=== PATIENT | male | born 1965 | race Caucasian/White ===

== ENCOUNTER 2017-01-19 12:27 | Inpatient (IN) | payer BC ==
--- NOTE | ~2017-01-19 | CR72 ---
[facility] A Service of [facility] RADIOLOGY TEXT RESULTS PATIENT: RICARDA OTERO LOCATION: [facility] 311-01 : 63 UNIT #: [id number] AGE: [address]: Yolis Leal MD SEX: M ORDER DR: [id number] [facility] [address] [facility]. [place], [place] [address] [id number] MR#: [id number] Acc #: [id number] NAME: RICARDA OTERO : 1965 SEX: M STUDY DATE/TIME: 01/19/2017 12:55 UNIT: [facility] ROOM: STUDY DESCRIPTION: CR Chest Single View Portable Attending Physician: Derik Sarah D.O. Ordering Physician: Derik Sarah D.O. Primary Care Physician: No Primary Care Physician MEDICAL IMAGING REPORT This report is preliminary unless electronic signature is present EXAM AP portable chest date 01/19/2017 at 12:55 HISTORY Cough. Blood in sputum. Shortness of breath. Symptoms have been present for 4 days. Smoking history. COMPARISON None. FINDINGS Abnormal interstitial opacities are seen diffusely throughout both lungs, left greater than right, with relative sparing of the apices. No pleural effusion or pneumothorax is identified. IMPRESSION Abnormal interstitial type infiltrates throughout both lungs, greatest in the left lower lobe, with relative sparing of the apices. Findings are nonspecific may represent changes of pneumonia in the appropriate clinical context. Continued radiographic followup to document resolution recommended. Dictated by... Fouzia Schrader M.D. THIS IS AN ELECTRONICALLY VERIFIED REPORT Fouzia Schrader M.D. at 01/20/2017 7:04 AM CRIS/nicholas TD: 01/19/2017 14:29 JOB #: [id number] MEDICAL IMAGING REPORT [facility] A Service of [facility] RADIOLOGY TEXT RESULTS PATIENT: RICARDA OTERO LOCATION: [facility] 311-01 : 63 UNIT #: [id number] AGE: [address]: Yolis Leal MD SEX: M ORDER DR: Page 1 of 1 COPY
--- NOTE | ~2017-01-19 | DS ---
Unit #: [id number] #: [id number] Patient: RICARDA OTERO [id number] [address] [place], [place] [address] [id number] I MR#: [id number] NAME: RICARDA OTERO. ROOM: 311 Age: 51 Sex: M Admission Date: 01/19/2017 : 1965 Discharge Date: 01/21/2017 Attending Physician: Ronnie De La Fuente M.D. Primary Care Physician: Kelsey Primary Care Physician DISCHARGE SUMMARY CONSULTANTS Dr. Ferrell. PROCEDURES PERFORMED Bronchoscopy. ADMITTING DIAGNOSES 1. Hemoptysis. 2. Community acquired pneumonia. 3. Hypoxia. DISCHARGE DIAGNOSES 1. Hemoptysis. 2. Community acquired pneumonia. 3. Hypoxia. 4. Hypertension. 5. History of smoking. HISTORY OF PRESENT ILLNESS The patient is a 51-year-old man with a past medical history of hypertension. He presented from the [facility] because of cough and shortness of breath. He was also complaining of having cough with production of bloody sputum. HOSPITAL COURSE The patient was started on steroids and antimicrobials. He got a chest x-ray which showed multifocal pneumonia. His initial white blood cell counts were high, up to 22,000. He also had a CT of the chest done. CT angiogram of the chest shows abnormal soft tissue thickening at the left hilum encasing and narrowing the left lower lobe bronchus, extending along the left lateral margin of the lower thoracic trachea near the jina, and abutting the left mainstem bronchus and left upper lobe bronchus. The findings are highly suspicious for primary lung malignancy. There is abnormal soft tissue thickening. Enlarged right hilar lymph node. Dense interstitial and alveolar disease in left lower lobe likely representing postobstructive pneumonia. Severe emphysema. 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 For further evaluation of the lung mass which is concerning for malignancy, Dr. Ferrell did a bronchoscopy. Pathology findings are pending at this point. He is still requiring 4 liters of oxygen. He is doing clinically better and he wants to go home. I discussed with Unit #: [id number] #: [id number] Patient: RICARDA OTERO Mariaelena and he mentioned it is okay to discharge him home. He needs to follow with Dr. Ferrell in his office in a week to review the biopsy findings and also plan further. I counseled him strongly to quit smoking. Will also arrange for home oxygen. I will also try to set up an appointment for him to follow with Mariaelena. PHYSICAL EXAMINATION VITALS: On the day of discharge, temperature 98.9, pulse rate 100, respiratory rate 20, blood pressure 135/97. GENERAL: The patient is alert and oriented times three, lying in the bed, in no acute distress. HEENT: Normocephalic, atraumatic. No icterus. Pupils equally round and reactive to light and accommodation. Extraocular muscles intact. NECK: Supple. No jugular venous distension. HEART: S1 and S2. Regular rate and rhythm. CHEST: Bilateral equal air entry. Bilateral rhonchi. ABDOMEN: Soft and nontender. EXTREMITIES: No edema. Normal pulses. DISCHARGE MEDICATIONS 1. Levaquin 750 mg p.o. daily for 5 more days. 2. Medrol Dosepak. 3. Tylenol p.r.n. 4. Metoprolol 25 mg p.o. b.i.d. 5. Humibid LA 600 mg b.i.d. 6. Protonix 40 mg daily. 7. Ventolin inhaler 1 puff q.4-6 h. p.r.n. shortness of breath. All discharge instructions were explained to the patient in detail. Total time in his care was 35 minutes. Dictated by... Brendon Santiago TD: 01/21/2017 15:35 JOB #: [id number] DISCHARGE SUMMARY Page 1 of 1 X X DISCHARGE SUMMARY
--- NOTE | ~2017-01-19 | CR72 ---
[facility] A Service of [facility] RADIOLOGY TEXT RESULTS PATIENT: RICARDA OTERO LOCATION: [facility] 311- : 63 UNIT #: [id number] AGE: [address]: Ronnie De La Fuente MD SEX: M ORDER DR: [id number] [facility] [address] [place], [place] [address] [id number] I MR#: [id number] Acc #: [id number] NAME: RICARDA OTERO : 1965 SEX: M STUDY DATE/TIME: 01/20/2017 16:02 UNIT: [address] ROOM: [facility] STUDY DESCRIPTION: CR Chest Single View Portable Attending Physician: Ronnie De La Fuente M.D. Ordering Physician: Rajiv Ferrell M.D. Primary Care Physician: Primary Care Physician No MEDICAL IMAGING REPORT This report is preliminary unless electronic signature is present EXAM Portable chest INDICATIONS Hemoptysis. The patient is status post bronchoscopic biopsy yesterday. PROCEDURE Frontal view of the chest COMPARISON 01/19/2017 at 1259 hours FINDINGS Redemonstration of increased interstitial markings, greatest in the left mid and lower lung zone. This is unchanged and there is no new dense consolidation. Lucency in the right apex in keeping with bolus change as shown on the recent. No appreciable pleural fluid. IMPRESSION Stable chest. Dictated by... Jose Manuel Templeton M.D. THIS IS AN ELECTRONICALLY VERIFIED REPORT Jose Manuel Templeton M.D. at 01/24/2017 9:54 AM EED/to TD: 01/20/2017 18:56 JOB #: [id number] MEDICAL IMAGING REPORT Page 1 of 1 COPY
--- NOTE | ~2017-01-19 | OR ---
Unit #: [id number] #: [id number] Patient: RICARDA OTERO [id number] [address] [place], [place] [address] [id number] I MR#: [id number] NAME: RICARDA OTERO ROOM: 311 Date of Procedure: 01/20/2017 Admission Date: 01/19/2017 Surgeon: Rajiv Ferrell M.D. : 1965 Attending Physician: Ronnie De La Fuente M.D. OPERATIVE REPORT INDICATIONS FOR PROCEDURE Right lower lobe pneumonia. ANESTHESIA Per anesthesiology. PROCEDURES PERFORMED Bronchoscopy with endobronchial biopsy, right lower lobe with transbronchial fine needle aspiration and bronchoalveolar lavage. DESCRIPTION OF PROCEDURE After obtaining informed consent, Anesthesiology gave propofol and Versed to the patient. The bronchoscope was used to do a BAL to the left lower lobe superior segment. Transbronchial FNA x4. This was sent off for cytology. The patient had a little bit of oozing; however, he tolerated the procedure very well. There were no acute complications and no limitations. Cultures will be sent off. Thank you very much. Please page me at [phone] if you have any questions. Dictated by... Brendon August/syed TD: 01/21/2017 06:21 JOB #: [id number] OPERATIVE REPORT Page 1 of 1 X Eleno Ferrell MD X PROCEDURE OPERATIVE NOTE
--- NOTE | ~2017-01-19 | CT16 ---
[facility] A Service of [facility] & [facility] RADIOLOGY TEXT RESULTS PATIENT: RICARDA OTERO LOCATION: [facility] 311-01 : 63 UNIT #: [id number] AGE: [address]: Yolis Leal MD SEX: M ORDER DR: [id number] [facility] [address] [facility]. [place], [place] [address] [id number] I MR#: [id number] Acc #: [id number] NAME: RICARDA OTERO. : 1965 SEX: M STUDY DATE/TIME: 01/19/2017 15:08 UNIT: [facility] ROOM: 30836 STUDY DESCRIPTION: CT Angio Chest for PE Attending Physician: Yolis Leal M.D. Ordering Physician: Yolis Leal M.D. Primary Care Physician: No Primary Care Physician MEDICAL IMAGING REPORT This report is preliminary unless electronic signature is present EXAM CTA chest with contrast, pulmonary embolism protocol, 01/19/2017. HISTORY 51-year-old male with acute respiratory failure, pneumonia, hemoptysis. Hypertension. Patient states cough for 2 days. Wheezing, fever, and shortness of breath. Blood in sputum. Current smoker. COMPARISON AP portable chest, 01/19/2017. PROCEDURE 2 mm axial images through the chest after IV contrast administration. 3-D coronal MIP reformatted images were also obtained. FINDINGS Left infrahilar soft tissue mass is seen, consistent with the appearance of malignancy. It measures about 1.8 cm x 5.3 cm anterior to the left lower lobe bronchus. It encases the left lower lobe bronchus and narrows it. It abuts the left upper lobe bronchus, but does not appear to encase it. There is abnormal soft tissue thickening in the AP window measuring 3.6 x 1.7 cm, where multiple clustered arterial vascular collaterals are seen. Prominence of presumed dilated bronchial arteries are seen arising from the anterior margin of the descending thoracic aorta at the T5 and T6 levels. There is some abnormal soft tissue thickening extending to the left lateral margin of the jina, as well. Constellation of findings is highly suspicious for malignancy. There is abnormal concentric thickening of the mid thoracic esophagus. No discrete esophageal lesion is identified. No supraclavicular or axillary adenopathy is seen. There is a mildly STS. [facility] A Service of [facility] RADIOLOGY TEXT RESULTS PATIENT: RICARDA OTERO LOCATION: [facility] 311-01 : 63 UNIT #: [id number] AGE: [address]: Yolis Leal MD SEX: M ORDER DR: prominent right suprahilar lymph node measuring 1.5 x 1.9 cm. Severe emphysematous changes are present. Dense interstitial and alveolar disease changes are seen throughout the left lower lobe, worrisome for pneumonia superimposed upon emphysema. No pleural effusion. No pneumothorax. 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 There is a chronic-appearing dissection with eccentric mural thrombus and probable moderate flow-limiting stenosis in the proximal SMA. The aneurysmal SMA segment measures at least 1.6 cm transversely, extending at least 2.8 cm in length. The imaged portions of the upper abdominal organs have a normal appearance. Adrenal glands unremarkable. No acute osseous abnormalities are identified. No evidence of pulmonary embolism. No thoracic aortic aneurysm or dissection. IMPRESSION 1. Abnormal soft tissue thickening in the left hilum encasing and narrowing the left lower lobe bronchus, extending along the left lateral margin of the lower thoracic trachea near the jina, and abutting the left mainstem bronchus and left upper lobe bronchus. The findings are highly suspicious for primary lung malignancy. 2. The vascularity is seen within the AP window, where there is abnormal soft tissue thickening. The neovascularity may represent dilated bronchial arteries related to emphysema or neovascularity related to suspected malignancy. Note of this should be made if transthoracic biopsy is contemplated. 3. Enlarged right hilar lymph node. Contralateral adenopathy cannot be excluded. 4. Dense interstitial and alveolar disease in left lower lobe likely representing postobstructive pneumonia. 5. Severe emphysema. 6. 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 Dictated by... Fouzia Schrader M.D. THIS IS AN ELECTRONICALLY VERIFIED REPORT [facility] A Service of [facility] & [facility] RADIOLOGY TEXT RESULTS PATIENT: RICARDA OTERO LOCATION: [facility] 311-01 : [birth year] UNIT #: [id number] AGE: [address]: Yolis Leal MD SEX: M ORDER DR: Fouzia Schrader M.D. at 01/20/2017 7:04 AM CRIS/lj TD: 01/19/2017 16:54 JOB #: [id number] MEDICAL IMAGING REPORT Page 1 of 1 COPY
--- NOTE | ~2017-01-19 | EKG ---
PATIENT: RICARDA OTERO UNIT #: [id number] Ventricular Rate: 112 BPM Atrial Rate: 112 BPM P-R Interval: 140 ms QRS Duration: 90 ms Q-T Interval: 316 ms QTC Calculation(Bezet): 431 ms P Crowley: 44 degrees Calculated R Crowley: -48 degrees Calculated T Crowley: 29 degrees Diagnosis Line: Sinus tachycardia Diagnosis Line: Left anterior fascicular block Diagnosis Line: Abnormal ECG Diagnosis Line: No previous ECGs available Diagnosis Line: Confirmed by LILY REYNOLDS MD ([id number]) on 01/20/2017 Diagnosis Line: 7:57:24 PM INTERPRETING MD: RODOLFO VIRAMONTES
--- NOTE | ~2017-01-19 | CO ---
Unit #: [id number] #: [id number] Patient: RICARDA OTERO [id number] [facility] [address]. [place], [place] [address] [id number] I MR#: [id number] NAME: RICARDA OTERO ROOM: 311 Age: 51 Sex: M Admission Date: 01/19/2017 : 1965 Attending Physician: Ronnie De La Fuente M.D. Consultation Date: 01/19/2017 CONSULTATION REPORT HISTORY OF PRESENT ILLNESS This is a 51-year-old gentleman, who does not go to the doctor very often, with a past medical history of hypertension, presented for evaluation of hemoptysis. The patient states he has had 2 to 3 day worsening shortness of breath, productive cough, fever, chills, bloody sputum. The patient is having chest wall pain with deep breathing. The patient has been having no vomiting or diarrhea. He was seen in [facility]. He was found to have saturations 89% and sent to the emergency department for further evaluation. In the emergency department, pulse was 117 and blood pressure was 150/118, O2 saturations 92% on 3 L. The patient is not on oxygen at home. The patient's saturation dropped to 88 on room air. The patient's chest x-ray shows multifocal pneumonia. The patient's white cell count was 22.6. The patient had a viral swab and rapid flu swab which were negative. The patient is being admitted to [facility] and we have been asked to see for possible bronchoscopy because the CT scan shows significant lymphadenopathy in the left lower lobe and there was also significant plugging of the left lower lobe, so therefore, there was a large pneumonic infiltrate in the left lower lobe. PAST MEDICAL HISTORY Significant for hypertension, however, the patient is not taking his medications because he stated that it "made him feel weird." PAST SURGICAL HISTORY He has no past surgical history. ALLERGIES No known medical allergies. MEDICATIONS No home medications. SOCIAL HISTORY The patient lives at home with his . Smokes about a pack and half cigarettes daily. Denies alcohol or polysubstance use. 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 FAMILY HISTORY Positive for intracranial aneurysm and congestive heart failure. REVIEW OF SYSTEMS As per the history of present illness, otherwise negative. PHYSICAL EXAMINATION Unit #: [id number] #: [id number] Patient: RICARDA OTERO VITAL SIGNS: T-current 98.1, pulse 117, respiratory rate 20, blood pressure 150/118, oxygen saturations 92% on 3 L and it dropped down to 88% on room air in the ED. HEENT: Extraocular movements are intact. CHEST: Clear to auscultation bilaterally. CARDIOVASCULAR: Regular rate. No gallop. ABDOMEN: Soft, nontender, and nondistended. EXTREMITIES: Shows trace edema. ASSESSMENT AND PLAN Lymphadenopathy and possible postobstructive pneumonia in left lower lobe. We are going to do a bronchoscopy and a bronchial wash to do biopsy FNA. Hopefully, we will find an endobronchial lesion that will help to explain the hemoptysis. Thank you very much for this consult and allowing us to participate in the care of this patient. Please page me at [phone] if you have any questions. Dictated by... Brendon August/syed TD: 01/21/2017 08:27 JOB #: [id number] CONSULTATION REPORT Page 1 of 1 X Eleno Ferrell MD X CONSULTATION REPORT
--- NOTE | ~2017-01-19 | HP ---
Unit #: [id number] #: [id number] Patient: RICARDA OTERO [id number] [facility]. [place], [place] [address] [id number] I MR#: [id number] NAME: RICARDA OTERO. ROOM: 44850 Age: 51 Sex: M Admission Date: 01/19/2017 : 1965 Attending Physician: Yolis Leal M.D. Primary Care Physician: Primary Care Physician No HISTORY AND PHYSICAL CHIEF COMPLAINT Cough, blood in sputum, sent from [facility]. HISTORY OF PRESENT ILLNESS The patient is a 51-year-old male with past medical history of hypertension who presented to the emergency department for evaluation of the above. The patient states that he has had a two to three day history of increasing shortness of breath and productive cough. The cough has been productive of bloody sputum. He states that he has had chest wall pain in association with deep breathing and cough. He has had chills and undocumented fever. He also reports decreased appetite but no vomiting or diarrhea. He was seen at [facility] and was noted to have oxygen saturation of 89%. He was sent to the emergency department for further evaluation. In the emergency department, initial pulse and blood pressure were 117 and 150/118 respectively. Oxygen saturation 92% on 3 liters. The patient's oxygen saturation dropped to 88% on room air during the course of his evaluation. A chest x-ray shows multifocal pneumonia. White blood cell count is 22.6. Rapid flu screen is negative. He is being admitted to [facility] for evaluation and further treatment. He received a 1 liter normal saline bolus as well as Rocephin and azithromycin in the emergency department. PAST MEDICAL HISTORY Hypertension. The patient was previously on antihypertensive medication but he states that it made him feel weird and so he stopped taking the medication. PAST SURGICAL HISTORY None. ALLERGIES No known allergies. HOME MEDICATIONS None. SOCIAL HISTORY The patient lives with his . He smokes a pack and a half of cigarettes daily. He denies alcohol or illicit drug use. 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 Unit #: [id number] #: [id number] Patient: RICARDA OTERO FAMILY HISTORY Notable for his mother having an intracranial aneurysm. His father had congestive heart failure. REVIEW OF SYSTEMS A complete review of systems is negative except as indicated in the HPI. The patient states that he has never had a stress test, never had a cardiac catheterization, never been told he has COPD. He denies any change in his weight. PHYSICAL EXAMINATION VITAL SIGNS: Temperature 98.1, pulse 117, respirations 20, blood pressure 150/118, oxygen saturation is 92% on 3 liters. Oxygen saturation dropped to 88% on room air in the emergency department. GENERAL: The patient is a male who is awake and alert in no acute distress. HEENT: Head is atraumatic. Mild exophthalmos noted. Mucous membranes are dry. NECK: Supple. Trachea is midline. LUNGS: Demonstrate scattered rhonchi and a few expiratory breathing. HEART: Tachycardic in the one-teens. ABDOMEN: Soft, nontender. Bowel sounds present in all four quadrants. EXTREMITIES: Nontender with no pedal edema. NEUROLOGIC: Patient is awake and alert. He follows commands. PSYCHIATRIC: Mood and affect are normal. Patient is cooperative. SKIN OF EXAMINED AREAS: Warm and dry. ASSESSMENT The patient is a 51-year-old male with: 1. Acute respiratory failure, hypoxic. 2. Pneumonia, community acquired. The patient received Rocephin and azithromycin in the emergency department. 3. Hemoptysis. 4. Sepsis. 5. Likely chronic obstructive pulmonary disease. 6. Uncontrolled hypertension. The patient's blood pressure is 150/118 in the emergency department. He was previously on some type of antihypertensive medication but is no longer compliant. 7. Tobacco abuse. PLAN 1. Admit to intermediate level. 2. Healthy-heart diet. 3. Normal saline at 125 mL per hour. 4. Supplemental oxygen 2-4 liters to maintain saturations greater than 92%. 5. DuoNeb q.4 h. while awake and q.2 h. p.r.n. 6. Solu-Medrol 80 mg IV q.12 h. with first dose now. 7. Mucinex 600 mg p.o. b.i.d. 8. Blood cultures x2. 9. Sputum culture and sensitivity. 10. CT of the chest PE protocol for further evaluation of hemoptysis and acute respiratory failure. 11. Procalcitonin level. 12. Consult Dr. Resendez regarding hemoptysis. 13. P.r.n. hydralazine. 14. Serial cardiac enzymes. Unit #: [id number] #: [id number] Patient: RICARDA OTERO 15. Sepsis protocol with STAT lactic acid. 16. Check urinalysis and urine tox screen. 17. Check TSH. 18. P.r.n. Tylenol. 19. Protonix for GI prophylaxis since the patient will be on Solu-Medrol. 20. Repeat labs in the morning. 21. Additional workup and consultants based on above. 22. Regarding CODE STATUS: Patient is a FULL CODE. Dictated by Brendon Jules/chloe TD: 01/19/2017 16:23 JOB #: [id number] HISTORY AND PHYSICAL Page 1 of 1 X Yolis Leal MD X HISTORY AND PHYSICAL
[2017-01-19 13:11] LABS: BASOPHIL% 0.1 % (0-2.5); EOSINOPHIL% 0.1 % (0.0-7.0); HEMATOCRIT 47.1 % (38.0-50.0); HEMOGLOBIN 15.9 gm/dL (13.0-16.0); LYMPHOCYTE# 0.7 X10e3 (1.0-3.5); MEAN CELL VOLUME 90.7 FL (83-96); MEAN CORPUSCULAR HEMOGLOBIN 30.7 PG (28-34); MEAN CORPUSCULAR HGB CONC 33.8 g/dL (30-36); MEAN PLATELET VOLUME 7.1 FL (6.5-11.5); MONOCYTE# 0.7 X10e3 (0-1.0); MONOCYTE% 2.9 % (3.0-12.0); NEUTROPHIL# 21.2 X10e3 (1.5-7.1); NEUTROPHIL% 93.9 % (40-75); PLATELET COUNT 290 X10e3 (140-420); RED BLOOD COUNT 5.19 X10e (3.90-5.60); WHITE BLOOD COUNT 22.6 X10e3 (4.0-10.5)
[2017-01-19 13:13] LABS: DIFF IND YES
[2017-01-19 13:14] LABS: POC - CKMB 1.1 ng/mL (0.0-7.9); POC - TROPONIN <0.05 ng/mL (<=0.05)
[2017-01-19 13:34] LABS: ALBUMIN SERUM 3.5 g/dL (3.5-5.0); BILIRUBIN, DIRECT 0.3 mg/dL (0.0-0.2); BILIRUBIN,TOTAL 1.3 mg/dL (0.2-2.0); CALCIUM SERUM 8.5 mg/dL (8.4-10.2); CREATININE SERUM 0.8 mg/dL (0.6-1.4); GLOM FILT RATE Estimated 102.7 mL/min (>60); POTASSIUM 3.5 mmol/L (3.5-5.1); PROTEIN TOTAL SERUM 7.3 g/dL (6.0-8.3)
[2017-01-19 13:39] LABS: PLATELET ESTIMATE NORMAL (NORMAL)
[2017-01-19 13:50] LABS: INFLUENZA A NEG (NEG); INFLUENZA B NEG (NEG)
[2017-01-19 14:56] LABS: POC - CKMB <1.0 ng/mL (0.0-7.9); POC - TROPONIN <0.05 ng/mL (<=0.05)
[2017-01-19 20:45] LABS: %MB 1.5 % (0.0-4.0); MB 1.1 ng/ml
[2017-01-19 20:55] LABS: URINE APPEARANCE CLEAR; URINE BILIRUBIN NEG (NEG); URINE BLOOD NEG (NEG); URINE COLOR YELLOW; URINE GLUCOSE 100 MG/DL (NEG); URINE KETONE 2+ (NEG); URINE LEUKOCYTE ESTERASE NEG (NEG); URINE NITRATE NEG (NEG); URINE PH 6.5 (5-8); URINE PROTEIN NEG (NEG); URINE SPECIFIC GRAVITY 1.017 (1.003-1.035)
[2017-01-19 21:02] LABS: CULTURE INDICATED? NO
[2017-01-19 21:04] LABS: AMPHETAMINE NEG (NEG); BARBITURATES NEG (NEG); BENZODIAZEPINES NEG (NEG); COCAINE NEG (NEG); MARIJUANA NEG (NEG); OPIATES NEG (NEG); TRICYCLIC ANTIDEPRESSANTS NEG (NEG); U METHADONE NEG (NEG)
[2017-01-20 01:39] LABS: HEMATOCRIT 45.1 % (38.0-50.0); HEMOGLOBIN 15.2 gm/dL (13.0-16.0); MEAN CELL VOLUME 90.6 FL (83-96); MEAN CORPUSCULAR HEMOGLOBIN 30.6 PG (28-34); MEAN CORPUSCULAR HGB CONC 33.7 g/dL (30-36); MEAN PLATELET VOLUME 7.3 FL (6.5-11.5); RED BLOOD COUNT 4.97 X10e (3.90-5.60); RED CELL DISTRIBUTION WIDTH 13.8 % (11.0-15.5); WHITE BLOOD COUNT 17.7 X10e3 (4.0-10.5)
[2017-01-20 02:49] LABS: BILIRUBIN,TOTAL 0.7 mg/dL (0.2-2.0); BUN/CREATININE RATIO 15.55; CREATININE SERUM 0.9 mg/dL (0.6-1.4); GLOM FILT RATE Estimated 97.9 mL/min (>60); POTASSIUM 3.4 mmol/L (3.5-5.1); PROTEIN TOTAL SERUM 6.7 g/dL (6.0-8.3)
[2017-01-20 02:50] LABS: %MB 13.1 % (0.0-4.0); MB 8.8 ng/ml
[2017-01-20 19:31] LABS: BF TOTAL NUCLEATED CELL COUNT 765 CMM (0-100); BODY FLUID APPEARANCE BLOODY; BODY FLUID RBC 178366 CMM; BODY FLUID SOURCE BRONCHIAL LAVAGE
[2017-01-21 06:32] LABS: HEMATOCRIT 40.2 % (38.0-50.0); MEAN CELL VOLUME 91.7 FL (83-96); MEAN CORPUSCULAR HEMOGLOBIN 29.9 PG (28-34); MEAN CORPUSCULAR HGB CONC 32.6 g/dL (30-36); MEAN PLATELET VOLUME 7.3 FL (6.5-11.5); RED BLOOD COUNT 4.38 X10e (3.90-5.60); RED CELL DISTRIBUTION WIDTH 14.2 % (11.0-15.5); WHITE BLOOD COUNT 17.6 X10e3 (4.0-10.5)
[2017-01-21 06:33] LABS: HEMOGLOBIN 13.1 gm/dL (13.0-16.0)
[2017-01-21 07:07] LABS: BUN/CREATININE RATIO 38.33; CREATININE SERUM 0.6 mg/dL (0.6-1.4); GLOM FILT RATE Estimated 115.6 mL/min (>60); POTASSIUM 3.5 mmol/L (3.5-5.1)
[2017-01-21] MEDS ORDERED: MEDROL DOSEPAK4 MG PO (16:17)
[2017-01-21] MEDS ORDERED: METOPROLOL SUCC25 MG PO (16:18)
[2017-01-21] MEDS ORDERED: HUMIBID-LA600 MG PO (16:18)
[2017-01-21] MEDS ORDERED: PROTONIX PO (16:18)
[2017-01-21] MEDS ORDERED: ALBUTEROL17 GM INH (16:19)
[2017-01-21] MEDS ORDERED: LEVAQUIN750 MG PO (16:19)
[2017-01-21] MEDS ORDERED: COMBIVENT U/D3 M2 INH (16:20)
[2017-01-21] MEDS ORDERED: ACETAMINOPHEN650 M4 PO (16:21)
[2017-01-22 23:08] LABS: HSV 1 DNA Detected (Not Detected); HSV 2 DNA Not Detected (Not Detected)
== END 2017-01-21 17:27 | disposition home or self-care (01) | DRG 853 ==
LOC: CED 12:27 → CEDOF 14:30 → C3A PCU 19:55
PROVIDERS: Emergency Medicine; Family Medicine; Internal Medicine; Internal Medicine Pulmonary Disease
PROC: 0B9B8ZX Drainage of Left Lower Lobe Bronchus, Via Natural or Artificial Opening Endoscopic, Diagnostic (ICD-10-PCS; principal; 2017-01-20 14:00)
PROC: 0BBF8ZX Excision of Right Lower Lung Lobe, Via Natural or Artificial Opening Endoscopic, Diagnostic (ICD-10-PCS; 2017-01-20 14:00)
DX: A41.9 Sepsis, unspecified organism (principal); J96.01 Acute respiratory failure with hypoxia; J18.9 Pneumonia, unspecified organism; E87.1 Hypo-osmolality and hyponatremia; R04.2 Hemoptysis; K21.9 Gastro-esophageal reflux disease without esophagitis; I10 Essential (primary) hypertension; F17.210 Nicotine dependence, cigarettes, uncomplicated; Z71.6 Tobacco abuse counseling; J20.9 Acute bronchitis, unspecified; R59.1 Generalized enlarged lymph nodes
CPT/HCPCS: 36415; 71010; 71275; 80048; 80053; 80076; 80307; 81003; 82550; 82553; 83605; 83880; 84443; 84484; 85025; 85027; 87040; 87070; 87102; 87106; 87116; 87205; 87206; 87252; 87254; 87278; 87449; 87497; 87529; 87804; 88108; 88173; 88305; 89051; 93005; 94640; 94760; 96361; 96365; 96367; 99285; J0171; J0360; J0456; J0696; J1200; J2250; J2930; Q9967